=== PATIENT | female | born 1985 | race Hispanic/Latino ===

== ENCOUNTER 2021-10-03 01:06 | Inpatient (IN) | payer MEDICAID, OTHER ==
[~2021-10-03] VITALS: Ht 157.5 cm; Wt 108.9 kg
[2021-10-03] VITALS (7 sets, daily range): BP systolic 136–175; BP diastolic 75–117
[2021-10-03] MEDS ORDERED: NS 1000ML 1,000 ML IV STA (02:45)
[2021-10-03] MEDS ORDERED: ZOFRAN IV STA (02:45)
--- NOTE | 2021-10-03 02:49 | ER.PDOC ---
General Chief Complaint: Requesting Medical Care Stated Complaint: ABD PAIN,VOMITING Time seen by MD: 02:48 Source: patient Exam Limitations: no limitations History of Present Illness Initial Comments Lower abdominal pain and vomiting. Timing/Duration: 24 hours Severity/Quality: moderate, sharpness Radiation: no radiation Associated Symptoms: nausea/vomiting Exacerbated by: nothing Relieved By: nothing Vital Signs First Vital Signs Date Time Temp Pulse Resp B/P (MAP) Pulse Ox O2 Delivery O2 Flow Rate FiO2 10/03/21 03:14 97.8 101 16 97 Last Vital Signs Date Time Temp Pulse Resp B/P (MAP) Pulse Ox O2 Delivery O2 Flow Rate FiO2 10/03/21 03:14 97.8 101 16 97 Past Medical History Medical History: other (SLE, Seizures) Surgical History: hysterectomy Family History Significant Family History: no pertinent family hx Social History Smoking: non-smoker Alcohol Use: none Drug Use: none Constitutional: no symptoms reported EENTM: no symptoms reported Respiratory: no symptoms reported Cardiovascular: no symptoms reported Gastrointestinal: see HPI All Other Systems: Reviewed and Negative Physical Exam General Appearance: No Apparent Distress, WD/WN, Obese Neck: Non-Tender, Full Range of Motion, Supple, Normal Inspection Respiratory: chest non-tender, lungs clear, normal breath sounds, no respiratory distress, no accessory muscle use Cardiovascular: Normal Peripheral Pulses, Regular Rate, Rhythm, No Edema, No Gallop, No JVD, No Murmur Gastrointestinal: Normal Bowel Sounds, No Organomegaly, No Pulsatile Mass, Tenderness (lower abdomen), Hernia (umbilical) Back: Normal Inspection, No CVA Tenderness, No Vertebral Tenderness Extremities: Normal Range of Motion, Non-Tender, Normal Inspection, No Pedal Edema, No Calf Tenderness, Normal Capillary Refill, Pelvis Stable 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 (10/03/21 02:45) Urinalysis (10/03/21 02:45) Comprehensive Metabolic Panel (10/03/21 02:45) 0.9 % Sodium Chloride (Ns 1000ml) (10/03/21 02:45) Ondansetron Hcl/Pf (Zofran) (10/03/21 02:45) 0.9 % Sodium Chloride (Ns 1000ml) (10/03/21 03:06) Ondansetron Hcl/Pf (Zofran) (10/03/21 03:06) Urine Culture (10/03/21 03:32) Ct Abd/Pelvis Wo Iv Contrast (10/03/21 02:45) Vital Signs Date Time Temp Pulse Resp B/P (MAP) Pulse Ox O2 Delivery O2 Flow Rate FiO2 10/03/21 03:14 97.8 101 16 97 10/03/21 03:14 97.8 101 16 97 Administered Medications Medications (Trade) Dose Ordered Sig/Maude Route PRN Reason Start Time Stop Time Status Last Admin Dose Admin Ondansetron HCl (Zofran) 4 mg STAT STAT IV 10/03/21 02:45 10/03/21 02:48 DC 10/03/21 03:12 4 MG Sodium Chloride 1,000 ml @ 1,000 mls/hr Q1H STAT IV 10/03/21 02:45 10/03/21 03:44 DC 10/03/21 03:12 1,000 MLS/HR Laboratory Tests Test 10/03/21 03:32 10/03/21 05:25 Urine Collection Type RANDOM Urine Color YELLOW Urine Appearance TURBID Urine Bilirubin NEGATIVE (NEGATIVE) Urine Ketones NEGATIVE (NEGATIVE) Urine Specific [place] >=1.030 (1.005-1.030) Urine pH 5.5 (4.5-8.0) Urine Protein 1+ (NEGATIVE) H Urine Urobilinogen 1.0 E.U./dL (0.2) Urine Nitrate NEGATIVE (NEGATIVE) Urine Leukocyte Esterase 1+ (NEGATIVE) H Urine Glucose (Auto)(UA) NEGATIVE (NEGATIVE) Urine Blood 2+ (NEGATIVE) H Urine RBC 0-2 RBC/HPF (NONE SEEN) Urine WBC TooNumerousToCount WBC/HPF (0-2) Urine Squamous Epithelial Cells MANY (<=FEW) Urine Bacteria MANY (NONE SEEN) H Urine Trichomonas MODERATE (NONE SEEN) A White Blood Count 7.6 10^3/uL (4.5-11.0) Red Blood Count 4.45 10^6/uL (4.00-5.20) Hemoglobin 11.1 g/dL (12.0-15.0) L Hematocrit 35.5 % (36.0-46.0) L Mean Corpuscular Volume 79.8 fL (78-100) Mean Corpuscular Hemoglobin 24.9 pg (26-34) L Mean Corpuscular Hemoglobin Concent 31.3 g/dL (33-36.5) L Red Cell Distribution Width 13.6 % (11.5-14.5) Platelet Count 413 10^3/uL (150-400) H Mean Platelet Volume 9.8 fL (7.8-11.0) Neutrophils (%) (Auto) 61.3 % (41.0-85.0) Lymphocytes (%) (Auto) 30.7 % (24.0-44.0) Monocytes (%) (Auto) 5.7 % (5.0-12.0) Neutrophils # (Auto) 4.6 10^3/uL (1.8-7.7) Lymphocytes # (Auto) 2.32 10^3/uL1 (1.0-4.8) Monocytes # (Auto) 0.4 10^3/uL (0.3-0.8) Absolute Immature Granulocyte (auto 0.02 10^3 u/L (0-2) Absolute Eosinophils (auto) 0.1 10^3/uL (0.0-0.2) Immature Granulocytes % 0.30 % (0.00-0.50) Eosinophils % 1.6 % (0.0-5.0) Basophils % 0.4 % (0.0-0.2) H Basophils # 0.0 10^3/uL (0.0-0.1) Prothrombin Time 10.4 SEC (9.6-12.0) Prothrombin Time INR (Non-Therap) 1.0 Activated Partial Thromboplast Time 22.4 SEC (24.67-30.72) Sodium Level 138 mmol/L (132-145) Potassium Level 3.6 mmol/L (3.6-5.2) Chloride Level 103.0 mmol/L (96-109) Carbon Dioxide Level 26.3 mmol/L (20.0-32) Anion Gap 12.3 Blood Urea Nitrogen 12 mg/dL (7-18) Creatinine 0.56 mg/dL (0.59-1.40) L Estimated GFR () 146.6 (>/=60) Est GFR (CKD-EPI)(Non-Afr [place]) 121.2 (>/=60) BUN/Creatinine Ratio 21.0 Glucose Level 111 mg/dL (70-110) H Calcium Level 8.8 mg/dL (8.4-10.5) Total Bilirubin 0.5 mg/dL (0.2-1.0) Aspartate Amino Transferase (AST) 21 U/L (0-35) Alanine Aminotransferase (ALT) 16 U/L (12-78) Alkaline Phosphatase 114 U/L (50-136) Total Protein 7.7 g/dL (6.4-8.2) Albumin 3.5 g/dL (3.4-5.0) Globulin 4.2 Albumin/Globulin Ratio 0.833 Lipase 94 U/L (114-286) L Progress Progress CT abdomen/pelvis: Fat containing periumbilical hernia with hernia neck measuring 9 mm. Associated inflammatory changes of the adjacent mesenteric fat. Spoke to Dr. Kyle about the incarcerated umbilical hernia and he told me to admit patient under the hospitalist and he will see her later today. ER DEPART Departure Time of Disposition: 06:14 Disposition: 09 ADMITTED INPATIENT Impression: Primary Impression: Incarcerated umbilical hernia Additional Impression: UTI (urinary tract infection) Condition: Stable Referrals: PCP,UNKNOWN (PCP) PRIMARY CARE PROVIDER Comments Admitted to Dr. Ceron Duration or Time Spent with Pa: 60 min Problem Qualifiers Additional Impression: UTI (urinary tract infection) Urinary tract infection type: site unspecified Hematuria presence: with hematuria Qualified Codes: N39.0 - Urinary tract infection, site not specified; R31.9 - Hematuria, unspecified MARCELA RODRÍGUEZ MD Oct 03, 2021 02:49
[2021-10-03] MEDS ORDERED: NS 1000ML 1,000 ML ONE (03:06)
[2021-10-03] MEDS ORDERED: ZOFRAN ONE (03:06)
[2021-10-03 03:38] LABS: BILIRUBIN,URINE NEGATIVE (NEGATIVE)
--- NOTE | 2021-10-03 05:02 | DIREP ---
PROCEDURE:CT ABDOMEN/PELVIS W/O CONTRAST COMPARISON:None. INDICATIONS:Lower abdominal pain TECHNIQUE:Axial images were created through the abdomen and pelvis without intravenous contrast material. No oral contrast was administered. The lack of oral contrast limits assessment of the bowel Sagittal and coronal reconstructions were performed from source images. FINDINGS: LUNG BASES:Normal. No visible pulmonary or pleural disease. LIVER:Normal. No significant liver lesions are identified. BILIARY:The gallbladder is surgically absent. PANCREAS:Normal. No lesion, fluid collection, ductal dilatation, or atrophy. SPLEEN:Normal. No enlargement or focal lesion. ADRENALS:Normal. No mass or enlargement. URINARY TRACT:Normal. No focal lesions or hydronephrosis. AORTA/VASCULAR:Normal. No aneurysm. RETROPERITONEUM:Normal. No mass or adenopathy. BOWEL/MESENTERY:Normal. There is no intestinal obstruction, free fluid, free air or mesenteric inflammatory changes. ABDOMINAL WALL:Fat containing periumbilical hernia. Mild inflammatory changes in the subcutaneous fat. PELVIC ORGANS:Normal. No visible mass. Pelvic organs appropriate for patient age. BONES:Normal for age. No bony lesion or acute fracture. OTHER:Negative. CONCLUSION:Fat containing periumbilical hernia with hernia neck measuring 9 mm. Associated inflammatory changes of the adjacent mesenteric fat. Dictated by: Brad Berry DO on 10/03/2021 at 04:56 AM
[2021-10-03 05:31] LABS: BASOPHIL % 0.4 % (0.0-0.2); EOSINOPHIL # 0.1 10^3/uL (0.0-0.2); EOSINOPHIL % 1.6 % (0.0-5.0); LYMPHOCYTES # 2.32 10^3/uL1 (1.0-4.8); LYMPHOCYTES % 30.7 % (24.0-44.0); MEAN CORP HGB 24.9 pg (26-34); MONOCYTES # 0.4 10^3/uL (0.3-0.8); MONOCYTES % 5.7 % (5.0-12.0); NEUTROPHIL # 4.6 10^3/uL (1.8-7.7); NEUTROPHILS % 61.3 % (41.0-85.0); PLATELET COUNT 413 10^3/uL (150-400); RED CELL DISTRIBUTION WIDTH 13.6 % (11.5-14.5)
[2021-10-03 05:47] LABS: CARBON DIOXIDE 26.3 mmol/L (20.0-32)
[2021-10-03] MEDS ORDERED: ROCEPHIN 1,000 MG in NS 100ML 100 ML IV STA (06:17)
[2021-10-03] MEDS ORDERED: MORPHINE SULFATE IV STA (06:17)
[2021-10-03] MEDS ORDERED: NS 100ML 100 ML IV ONE (06:38)
[2021-10-03] MEDS ORDERED: ROCEPHIN ONE (06:38)
[2021-10-03] MEDS ORDERED: MORPHINE SULFATE ONE (06:39)
[2021-10-03] MEDS ORDERED: BENADRYL IV STA (07:01)
[2021-10-03] MEDS ORDERED: BENADRYL ONE (07:02)
--- NOTE | 2021-10-03 07:15 | NUR ---
REPORT REPORT CALLED TO Jarrett DUARTE RN
--- NOTE | 2021-10-03 07:25 | NUR ---
MS PT TO 338 VIA W/C IN STABLE CONDITION.
--- NOTE | 2021-10-03 07:47 | NUR ---
ARRIVAL PATIENT ARRIVED TO MED-SURG UNIT AT THIS TIME TO ROOM #338. RECEIVED REPORT, ASSUMED CARE FOR PATIENT AT THIS TIME.
[2021-10-03] MEDS: ROCEPHIN 1,000 MG in NS 100ML 100 ML IV SCH (09:30)
[2021-10-03] MEDS ORDERED: D5W-1/2NS 1000ML 1,000 ML IV ONE ×2 (09:30→14:30)
[2021-10-03] MEDS: DILAUDID IV PRN ×3 (10:45→19:18)
--- NOTE | 2021-10-03 13:43 | PCM.HP ---
History of Present Illness Reason for Visit: Abdominal pain History of Present Illness 36-year-old female with history of seizure disorder, anxiety, lupus, DVTPresented to the emergency room with abdominal pain and nausea for the last week. Symptoms got worse last 24 hours. Work-up in the emergency room patient was found to haveUTI. CT abdomen pelvis showed :Fat containing periumbilical hernia with hernia neck measuring 9 mm. Associated inflammatory changes of the adjacent mesenteric fat. Surgeon was consulted by ED physician. Patient is being admitted hospital for further management. 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 Heme/Onc: Other (DVT) Psychiatric: Anxiety Past Surgical History: Cholecystectomy, Other (Hysterectomy) Past Social History Smoke: No Review of Systems Gastrointestinal: Nausea, Abdominal Pain Genitourinary: Dysuria Allergies: Coded Allergies: Iodinated Contrast Media (Verified Allergy, Severe, Anaphylaxis Shock, 10/03/21) "MY THROAT CLOSED" ketorolac (Verified Allergy, Severe, Shortness of Breath, 10/03/21) HIVES metoclopramide (Verified Allergy, Severe, Shortness of Breath, 10/03/21) HIVES morphine (Verified Allergy, Unknown, Redness of skin, 10/03/21) Exam Vital Signs Vital Signs Date Time Temp Pulse Resp B/P (MAP) Pulse Ox O2 Delivery O2 Flow Rate FiO2 10/03/21 08:14 97.9 90 18 160/102 (121) 96 Room Air General Appearance: Alert, Oriented X3 HEENT: Atraumatic, PERRLA Respiratory: Clear to auscultation, Normal air movement Cardiovascular: Regular rate, Normal S1, Normal S2 Abdominal: Normal bowel sounds, Soft, Other (Periumbilical hernia) Extremities: No clubbing, No cyanosis Skin: No rash Neuro: Normal speech, Normal tone Psych/Mental Status: Mental status NL, Mood NL Assessment/Plan Assessment/Plan Assessment/Plan 36-year-old female with history of morbid obesity, seizure disorder, anxiety, presented with abdominal pain and nausea CT abdomen pelvis: Fat containing periumbilical hernia with hernia neck measuring 9 mm. Associated inflammatory changes of the adjacent mesenteric fat. Also patient was found to have UTI. Plan Admit Surgeon consulted for evaluation and management. Keep n.p.o. IV fluids IV antibiotic Pain management with close monitoring of vital signs and pulse ox Will review and reconcile home meds GI prophylaxis famotidine DVT prophylaxis as appropriate Expect length of stay more than 1 midnight Problems: (1) UTI (urinary tract infection) Status: Acute ICD Code: N39.0 - Urinary tract infection, site not specified SNOMED: 67692708 (2) Incarcerated umbilical hernia Status: Acute ICD Code: K42.0 - Umbilical hernia with obstruction, without gangrene SNOMED: 654898429 (3) Morbid obesity ICD Code: E66.01 - Morbid (severe) obesity due to excess calories SNOMED: 911776379 (4) Seizure disorder ICD Code: G40.909 - Epilepsy, unspecified, not intractable, without status epilepticus SNOMED: 722271157 Problem Qualifiers (1) UTI (urinary tract infection): Urinary tract infection type: site unspecified Hematuria presence: with hematuria Qualified Codes: N39.0 - Urinary tract infection, site not specified; R31.9 - Hematuria, unspecified JADE BHATT MD Oct 03, 2021 13:43
--- NOTE | 2021-10-03 13:55 | PRM.CONS ---
CONSULTATION CONSULTATION Chief complaint Incarcerated incisional hernia History of present illness 36-year-old female traveling up to this area via bus began having abdominal pain nausea about 24 hours ago. Patient still having bowel movements. No vomiting. Pain is described as sharp around the periumbilical area. Patient has had multiple surgeries in this area including and hysterectomy at the same time. Along with lap appendectomy and gallbladder surgery. Past medical history Seizure disorder, lupus, anxiety, DVT Past surgical history and hysterectomy, appendectomy, Sandra Allergies Contrast, Toradol, Reglan, morphine Meds See current med list Social history Denies tobacco alcohol or drug use Family history None Review of systems General: Denies fever, chills, significant weight change HEENT: Denies blurry vision, double vision, hearing loss, neck pain CVS: Denies heart attack, stroke, high blood pressure Lungs: Denies shortness of breath or productive cough Abdomen: Positive abdominal pain, nausea denies vomiting, constipation, diarrhea Extremities: Denies unusual change in sensation or unusual weakness Psych: Positive for anxiety, denies depression Physical exam Vitals See vitals in chart Labs See labs in chart Radiology Reviewed CT scan abdomen pelvis General: Alert and oriented x3 no acute distress HEENT: Pupils 6 mm reactive, extraocular muscles intact, neck supple, hearing intact CVS: Regular rate and rhythm Lungs: Clear to auscultation bilaterally Abdomen: Minimal tenderness around the umbilicus, no erythema, distant bowel sounds, nondistended Extremities: 2+ distal pulses Psych: Calm and lucid Assessment and plan 36-year-old female with incisional hernia with incarcerated fat and UTI 1. Patient will need to get UTI treated prior to surgical intervention requiring mesh 2. Would recommend laparoscopic procedure with mesh placement, but patient cannot have any active ongoing infections at the time of procedure 3. Currently recommend pain management and UTI treatment and follow-up in the office for outpatient procedure HAI MASON MD Oct 03, 2021 13:55
[2021-10-03] MEDS ORDERED: KEPPRA IV SCH (14:00)
[2021-10-03] MEDS: KEPPRA 100 ML IV SCH ×2 (14:00→14:23)
[2021-10-03] MEDS ORDERED: ATIVAN IV PRN (14:00)
--- NOTE | 2021-10-03 14:19 | NUR ---
REPORT REPORT GIVEN TO CHERYL LEDESMA. RELINQUISHED CARE FOR PATIENT AT THIS TIME.
--- NOTE | 2021-10-03 14:25 | NUR ---
MARLON RECEIVED ORDERS FROM DR. MASON TO PLACE PT ON A DIET, AND THAT SHE CAN EAT. HE STATED THAT HE IS NOT GOING TO DO ANY SURGICAL PROCEDURE AT THE MOMENT BECAUSE THE PT HAS A UTI. THIS NURSE TO NOTIFY PT'S NURSE OF CHANGES.
[2021-10-03] MEDS: ZOFRAN IV PRN ×2 (15:05→19:18)
--- NOTE | 2021-10-03 15:05 | NUR ---
STATUS PT HAD COMPLAINS OF NAUSEA AFTER RECEIVING DILAUDID, THIS NURSE TO ADMINISTER 4MG OF ZOFRAN VIA IV.
--- NOTE | 2021-10-03 15:30 | NUR ---
STATUS PT STARTED VOMITING COPIOUS AMOUNTS OF WHAT APPEARED TO BE THE SANDWICH SHE ATE EARLIER, AND SOME GREEN BILE. PT'S BLOOD PRESSURE WAS REPORTED TO BE 175/117 BY HARSH AGUILLON. THIS NURSE CALLED DR. HANSEN AND RECEIVED AN ORDER FOR PHENERGAN 12.5MG IV OT, AND TO MAKE THE PT NPO AGAIN. DR. HANSEN REQUESTED THAT WE ADMINISTER THE PHENERGAN, AND TO WAIT ABOUT AN HOUR AND IF HER BP IS STILL THAT HIGH, TO ADMINISTER A OT DOSE OF LABETALOL 10MG VIA IV. THIS NURSE TO NOTIFY PT'S NURSE OF NEW ORDERS.
[2021-10-03] MEDS ORDERED: PHENERGAN ONE (15:41)
[2021-10-03] MEDS ORDERED: NS 25ML 25 ML IV ONE (15:41)
[2021-10-03] MEDS ORDERED: PHENERGAN IV ONE (16:00)
[2021-10-03] MEDS ORDERED: LEVETIRACETAM PO ONE (20:18)
[2021-10-03] MEDS: PEPCID IV SCH (20:23)
[2021-10-03] MEDS: KEPPRA PO SCH (20:23)
[2021-10-03] MEDS ORDERED: FLAGYL 500MG/ 100 ML NS 100 ML IV ONE (21:09)
[2021-10-03] MEDS: FLAGYL 500MG/ 100 ML NS 100 ML IV SCH (21:15)
[2021-10-04] MEDS: DILAUDID IV PRN ×5 (03:50→23:17)
[2021-10-04 04:10] VITALS: BP 146/96
[2021-10-04] MEDS: ZOFRAN IV PRN ×2 (04:11→08:43)
[2021-10-04] MEDS ORDERED: FLAGYL 500MG/ 100 ML NS 100 ML IV ONE (04:47)
[2021-10-04] MEDS: FLAGYL 500MG/ 100 ML NS 100 ML IV SCH (05:07)
[2021-10-04 06:56] LABS: BASOPHIL % 0.4 % (0.0-0.2); EOSINOPHIL # 0.1 10^3/uL (0.0-0.2); EOSINOPHIL % 1.9 % (0.0-5.0); LYMPHOCYTES # 0.95 10^3/uL1 (1.0-4.8); LYMPHOCYTES % 17.9 % (24.0-44.0); MEAN CORP HGB 25.2 pg (26-34); MONOCYTES # 0.4 10^3/uL (0.3-0.8); NEUTROPHIL # 3.9 10^3/uL (1.8-7.7); NEUTROPHILS % 72.8 % (41.0-85.0); PLATELET COUNT 310 10^3/uL (150-400); RED CELL DISTRIBUTION WIDTH 13.6 % (11.5-14.5)
[2021-10-04 07:12] LABS: CARBON DIOXIDE 24.7 mmol/L (20.0-32)
[2021-10-04] MEDS: PEPCID IV SCH ×2 (08:24→21:59)
[2021-10-04] MEDS: KEPPRA PO SCH ×3 (08:24→22:00)
[2021-10-04] MEDS: ROCEPHIN 1,000 MG in NS 100ML 100 ML IV SCH (08:24)
[2021-10-04] MEDS ORDERED: NS 250ML 250 ML ONE ×2 (08:35→16:19)
[2021-10-04 08:39] VITALS: BP 133/81
--- NOTE | 2021-10-04 09:51 | PRM.PN ---
Subjective Subjective Date: Oct 04, 2021 Time: 09:45 Subjective Ms. Mari c/o abdominal pain and nausea VTE VTE Risk Total Score: 1 VTE Risk Score VTE Risk: Score 0-1 = Low Risk (Aggressive mobilization; early ambulation; no VTE prophylaxis required) Score 2: Moderate Risk (Intermittent/Pneumatic Compression Device OR Lovenox/Heparin/Coumadin) Score 3-4: High Risk (Intermittent/Pneumatic Compression Device AND Lovenox/Heparin/Coumadin) Score > or =5: Highest Risk (Intermittent/Pneumatic Compression Device AND Lovenox/Heparin/Coumadin) Review of Systems Constitutional: Malaise; No: Fever, Chills, Sweats Gastrointestinal: Nausea, Vomiting, Abdominal Pain Genitourinary: Dysuria Allergies: Coded Allergies: Iodinated Contrast Media (Verified Allergy, Severe, Anaphylaxis Shock, 10/03/21) "MY THROAT CLOSED" ketorolac (Verified Allergy, Severe, Shortness of Breath, 10/03/21) HIVES metoclopramide (Verified Allergy, Severe, Shortness of Breath, 10/03/21) HIVES morphine (Verified Allergy, Unknown, Redness of skin, 10/03/21) Objective Vitals and I/O Vital Sign - Last 24 Hours 10/04/21 10/04/21 08:39 09:17 Temp 98.1 Pulse 99 Resp 17 B/P (MAP) 133/81 (98) Pulse Ox 96 O2 Delivery Room Air General: Alert, Oriented X3 HEENT: Atraumatic, PERRLA Lungs: Clear to auscultation, Normal air movement Heart: Regular rate, Normal S1, Normal S2 Abdomen: Normal bowel sounds, Soft, Other (diffuse TTP) Extremities: No clubbing, No cyanosis Neuro: Normal speech, Normal tone Psych/Mental Status: Mental status NL, Mood NL All Results(Lab/Rad) Laboratory Tests Test 10/04/21 06:40 White Blood Count 5.3 10^3/uL Red Blood Count 4.29 10^6/uL Hemoglobin 10.8 g/dL Hematocrit 34.8 % Mean Corpuscular Volume 81.1 fL Mean Corpuscular Hemoglobin 25.2 pg Mean Corpuscular Hemoglobin Concent 31.0 g/dL Red Cell Distribution Width 13.6 % Platelet Count 310 10^3/uL Mean Platelet Volume 9.6 fL Neutrophils (%) (Auto) 72.8 % Lymphocytes (%) (Auto) 17.9 % Monocytes (%) (Auto) 7.0 % Neutrophils # (Auto) 3.9 10^3/uL Lymphocytes # (Auto) 0.95 10^3/uL1 Monocytes # (Auto) 0.4 10^3/uL Absolute Immature Granulocyte (auto 0.01 10^3 u/L Absolute Eosinophils (auto) 0.1 10^3/uL Immature Granulocytes % 0.20 % Eosinophils % 1.9 % Basophils % 0.4 % Basophils # 0.0 10^3/uL Sodium Level 138 mmol/L Potassium Level 3.1 mmol/L Chloride Level 101.0 mmol/L Carbon Dioxide Level 24.7 mmol/L Glucose Level 108 mg/dL Blood Urea Nitrogen 5 mg/dL Creatinine 0.48 mg/dL Calcium Level 8.1 mg/dL Anion Gap 15.4 Estimated GFR () 175.1 Est GFR (CKD-EPI)(Non-Afr Ghanaian) 144.7 BUN/Creatinine Ratio 10.0 Current Medications Medications (Trade) Dose Ordered Sig/Maude Route PRN Reason Start Time Stop Time Status Last Admin Dose Admin Sodium Chloride 1,000 ml @ 1,000 mls/hr Q1H STAT IV 10/03/21 02:45 10/03/21 03:44 DC 10/03/21 03:12 Ondansetron HCl (Zofran) 4 mg STAT STAT IV 10/03/21 02:45 10/03/21 02:48 DC 10/03/21 03:12 Sodium Chloride 1,000 ml @ ud STK-MED ONCE .ROUTE 10/03/21 03:06 10/03/21 03:06 DC Ondansetron HCl (Zofran) 4 mg STK-MED ONCE .ROUTE 10/03/21 03:06 10/03/21 03:07 DC Ceftriaxone Sodium 1000 mg/ Sodium Chloride 100 ml @ 100 mls/hr STAT STAT IV 10/03/21 06:17 10/03/21 07:16 DC 10/03/21 06:50 Morphine Sulfate (Morphine Sulfate) 4 mg STAT STAT IV 10/03/21 06:17 10/03/21 06:21 DC 10/03/21 06:50 Sodium Chloride 100 ml @ ud STK-MED ONCE IV 10/03/21 06:38 10/03/21 06:38 DC Ceftriaxone Sodium (Rocephin) 1,000 mg STK-MED ONCE .ROUTE 10/03/21 06:38 10/03/21 06:39 DC Morphine Sulfate (Morphine Sulfate) 4 mg STK-MED ONCE .ROUTE 10/03/21 06:39 10/03/21 06:39 DC Diphenhydramine HCl (Benadryl) 25 mg STAT STAT IV 10/03/21 07:01 10/03/21 07:02 DC 10/03/21 07:06 Diphenhydramine HCl (Benadryl) 50 mg STK-MED ONCE .ROUTE 10/03/21 07:02 10/03/21 07:02 DC Ondansetron HCl (Zofran) 4 mg Q4H PRN IV NAUSEA / VOMITING 10/03/21 09:30 10/04/21 09:44 DC 10/04/21 08:43 Famotidine (Pepcid) 20 mg BID IV 10/03/21 21:00 11/02/21 20:59 10/04/21 08:24 Ceftriaxone Sodium 1000 mg/ Sodium Chloride 100 ml @ 100 mls/hr Q24HRS IV 10/03/21 09:30 11/02/21 09:29 10/04/21 08:24 Hydromorphone HCl (Dilaudid) 0.5 mg Q4H PRN IV PAIN 7 - 10 10/03/21 10:00 11/02/21 09:59 10/04/21 08:44 Levetiracetam (Keppra) 500 mg Q8 IV 10/03/21 14:00 10/03/21 14:14 DC Lorazepam (Ativan) 1 mg PRN PRN IV seizure 10/03/21 14:00 11/02/21 13:59 Promethazine HCl (Phenergan) 25 mg STK-MED ONCE .ROUTE 10/03/21 15:41 10/03/21 15:41 DC Sodium Chloride 25 ml @ ud STK-MED ONCE IV 10/03/21 15:41 10/03/21 15:42 DC Promethazine HCl (Phenergan) 12.5 mg OT ONCE IV 10/03/21 16:00 10/03/21 20:47 DC 10/03/21 15:47 Levetiracetam (Keppra) 500 mg BID PO 10/03/21 21:00 11/02/21 20:59 10/04/21 08:24 Metronidazole 100 ml @ 100 mls/hr Q8HR IV 10/03/21 22:00 11/02/21 21:59 10/04/21 05:07 Levetiracetam (Levetiracetam) 250 mg STK-MED ONCE PO 10/03/21 20:18 10/03/21 20:18 DC Metronidazole 100 ml @ ud STK-MED ONCE IV 10/03/21 21:09 10/03/21 21:09 DC Metronidazole 100 ml @ ud STK-MED ONCE IV 10/04/21 04:47 10/04/21 04:47 DC Sodium Chloride 250 ml @ ud STK-MED ONCE .ROUTE 10/04/21 08:35 10/04/21 08:35 DC Ondansetron HCl (Zofran) 8 mg Q6H IV 10/04/21 10:00 11/02/21 09:29 UNV Enoxaparin Sodium (Lovenox) 30 mg Q12H SQ 10/04/21 10:00 11/03/21 09:59 UNV Course Sepsis Screening Results: Posi: NEGATIVE Sepsis Qualifier/Stage: NO DEFINITE RISK Duration or Total Time Spent w: 60 min Vitals & review Data Vital Sign - Last 24 Hours 10/04/21 10/04/21 08:39 09:17 Temp 98.1 Pulse 99 Resp 17 B/P (MAP) 133/81 (98) Pulse Ox 96 O2 Delivery Room Air Laboratory Tests Test 10/03/21 03:32 10/03/21 05:25 10/03/21 06:14 10/04/21 06:40 Urine Collection Type RANDOM Urine Color YELLOW Urine Appearance TURBID Urine Bilirubin NEGATIVE Urine Ketones NEGATIVE Urine Specific [place] >=1.030 Urine pH 5.5 Urine Protein 1+ Urine Urobilinogen 1.0 E.U./dL Urine Nitrate NEGATIVE Urine Leukocyte Esterase 1+ Urine Glucose (Auto)(UA) NEGATIVE Urine Blood 2+ Urine RBC 0-2 RBC/HPF Urine WBC TooNumerousToCount WBC/HPF Urine Squamous Epithelial Cells MANY Urine Bacteria MANY Urine Trichomonas MODERATE White Blood Count 7.6 10^3/uL 5.3 10^3/uL Red Blood Count 4.45 10^6/uL 4.29 10^6/uL Hemoglobin 11.1 g/dL 10.8 g/dL Hematocrit 35.5 % 34.8 % Mean Corpuscular Volume 79.8 fL 81.1 fL Mean Corpuscular Hemoglobin 24.9 pg 25.2 pg Mean Corpuscular Hemoglobin Concent 31.3 g/dL 31.0 g/dL Red Cell Distribution Width 13.6 % 13.6 % Platelet Count 413 10^3/uL 310 10^3/uL Mean Platelet Volume 9.8 fL 9.6 fL Neutrophils (%) (Auto) 61.3 % 72.8 % Lymphocytes (%) (Auto) 30.7 % 17.9 % Monocytes (%) (Auto) 5.7 % 7.0 % Neutrophils # (Auto) 4.6 10^3/uL 3.9 10^3/uL Lymphocytes # (Auto) 2.32 10^3/uL1 0.95 10^3/uL1 Monocytes # (Auto) 0.4 10^3/uL 0.4 10^3/uL Absolute Immature Granulocyte (auto 0.02 10^3 u/L 0.01 10^3 u/L Absolute Eosinophils (auto) 0.1 10^3/uL 0.1 10^3/uL Immature Granulocytes % 0.30 % 0.20 % Eosinophils % 1.6 % 1.9 % Basophils % 0.4 % 0.4 % Basophils # 0.0 10^3/uL 0.0 10^3/uL Prothrombin Time 10.4 SEC Prothrombin Time INR (Non-Therap) 1.0 Activated Partial Thromboplast Time 22.4 SEC Sodium Level 138 mmol/L 138 mmol/L Potassium Level 3.6 mmol/L 3.1 mmol/L Chloride Level 103.0 mmol/L 101.0 mmol/L Carbon Dioxide Level 26.3 mmol/L 24.7 mmol/L Anion Gap 12.3 15.4 Blood Urea Nitrogen 12 mg/dL 5 mg/dL Creatinine 0.56 mg/dL 0.48 mg/dL Estimated GFR () 146.6 175.1 Est GFR (CKD-EPI)(Non-Afr Ghanaian) 121.2 144.7 BUN/Creatinine Ratio 21.0 10.0 Glucose Level 111 mg/dL 108 mg/dL Calcium Level 8.8 mg/dL 8.1 mg/dL Total Bilirubin 0.5 mg/dL Aspartate Amino Transf (AST/SGOT) 21 U/L Alanine Aminotransferase (ALT/SGPT) 16 U/L Alkaline Phosphatase 114 U/L Total Protein 7.7 g/dL Albumin 3.5 g/dL Globulin 4.2 Albumin/Globulin Ratio 0.833 Lipase 94 U/L SARS-CoV-2 Antigen (Rapid) NEGATIVE Current Medications Medications (Trade) Dose Ordered Sig/Maude PRN Reason Start Time Stop Time Status Last Admin Ceftriaxone Sodium 1000 mg/ Sodium Chloride 100 ml @ 100 mls/hr Q24HRS 10/03/21 09:30 11/02/21 09:29 10/04/21 08:24 Enoxaparin Sodium (Lovenox) 30 mg Q12H 10/04/21 10:00 11/03/21 09:59 UNV Famotidine (Pepcid) 20 mg BID 10/03/21 21:00 11/02/21 20:59 10/04/21 08:24 Hydromorphone HCl (Dilaudid) 0.5 mg Q4H PRN PAIN 7 - 10 10/03/21 10:00 11/02/21 09:59 10/04/21 08:44 Levetiracetam (Keppra) 500 mg BID 10/03/21 21:00 11/02/21 20:59 10/04/21 08:24 Lorazepam (Ativan) 1 mg PRN PRN seizure 10/03/21 14:00 11/02/21 13:59 Metronidazole 100 ml @ 100 mls/hr Q8HR 10/03/21 22:00 11/02/21 21:59 10/04/21 05:07 Ondansetron HCl (Zofran) 8 mg Q6H 10/04/21 10:00 11/02/21 09:29 UNV LEVEL 1 SEPSIS INFECTION CRITE: ABX Therapy, Abdominal Pain LEVEL 2-SIRS (LIST ALL THAT AP: None/Not assessed Cardiovascular Evidence: Not Assessed or None Hematologic Evidence: None/Not assessed Hepatic Evidence: None/Not assessed Metabolic Evidence: None/Not assessed Neurological Evidence: None/Not assessed Respiratory Evidence: None/Not assessed Renal Evidence: None/Not assessed O2 Sat by Pulse Oximetry: 96 Assessment/Plan Assessment/Plan Problems: (1) Incarcerated umbilical hernia Status: Acute Assessment & Plan: Status post surgery eval, treating UTI in preparation for surgical repair ICD Code: K42.0 - Umbilical hernia with obstruction, without gangrene SNOMED: 877862810 (2) UTI (urinary tract infection) Status: Acute Assessment & Plan: started on ceftriaxone based upon UA ICD Code: N39.0 - Urinary tract infection, site not specified SNOMED: 77777768 (3) Morbid obesity Status: Chronic Assessment & Plan: will vocational rehabilitation counselor on weight loss once she is acutely improved ICD Code: E66.01 - Morbid (severe) obesity due to excess calories SNOMED: 626550138 (4) Seizure disorder Status: Chronic Assessment & Plan: resumed home keppra ICD Code: G40.909 - Epilepsy, unspecified, not intractable, without status epilepticus SNOMED: 326734585 Problem Qualifiers (1) UTI (urinary tract infection): Urinary tract infection type: site unspecified Hematuria presence: with hematuria Qualified Codes: N39.0 - Urinary tract infection, site not specified; R31.9 - Hematuria, unspecified KYLEE NEVAREZ MD Oct 04, 2021 09:51
[2021-10-04] MEDS: ZOFRAN IV SCH ×3 (10:00→21:59)
[2021-10-04] MEDS ORDERED: ZOFRAN IV ONE (10:30)
[2021-10-04] MEDS: LOVENOX SQ SCH ×2 (10:52→22:01)
[2021-10-04 12:24] VITALS: BP 135/79
[2021-10-04] MEDS: FLAGYL PO SCH ×3 (14:48→22:00)
[2021-10-04 16:13] VITALS: BP 135/85
[2021-10-04] MEDS ORDERED: NS 25ML 25 ML IV ONE ×2 (16:16→21:22)
[2021-10-04] MEDS: PHENERGAN IV PRN ×2 (16:35→21:59)
--- NOTE | 2021-10-04 17:46 | PRM.PN ---
Progress Note Subjective Physician Notes: Pain better, still having issues with n/v Objective Review IO, Exams,& Results Problems Acute/Active Problems: (1) Incarcerated umbilical hernia (2) UTI (urinary tract infection) Vital Signs Date Time Temp Pulse Resp B/P (MAP) Pulse Ox O2 Delivery O2 Flow Rate FiO2 10/04/21 16:13 98.8 114 17 135/85 (102) 96 10/04/21 09:17 Room Air Intake and Output 10/04/21 07:00 Intake Total 1200 ml Balance 1200 ml IV Total 1200 ml Laboratory Tests Test 10/03/21 03:32 10/03/21 05:25 10/03/21 06:14 10/04/21 06:40 Urine Collection Type RANDOM Urine Color YELLOW Urine Appearance TURBID Urine Bilirubin NEGATIVE Urine Ketones NEGATIVE Urine Specific [place] >=1.030 Urine pH 5.5 Urine Protein 1+ Urine Urobilinogen 1.0 E.U./dL Urine Nitrate NEGATIVE Urine Leukocyte Esterase 1+ Urine Glucose (Auto)(UA) NEGATIVE Urine Blood 2+ Urine RBC 0-2 RBC/HPF Urine WBC TooNumerousToCount WBC/HPF Urine Squamous Epithelial Cells MANY Urine Bacteria MANY Urine Trichomonas MODERATE White Blood Count 7.6 10^3/uL 5.3 10^3/uL Red Blood Count 4.45 10^6/uL 4.29 10^6/uL Hemoglobin 11.1 g/dL 10.8 g/dL Hematocrit 35.5 % 34.8 % Mean Corpuscular Volume 79.8 fL 81.1 fL Mean Corpuscular Hemoglobin 24.9 pg 25.2 pg Mean Corpuscular Hemoglobin Concent 31.3 g/dL 31.0 g/dL Red Cell Distribution Width 13.6 % 13.6 % Platelet Count 413 10^3/uL 310 10^3/uL Mean Platelet Volume 9.8 fL 9.6 fL Neutrophils (%) (Auto) 61.3 % 72.8 % Lymphocytes (%) (Auto) 30.7 % 17.9 % Monocytes (%) (Auto) 5.7 % 7.0 % Neutrophils # (Auto) 4.6 10^3/uL 3.9 10^3/uL Lymphocytes # (Auto) 2.32 10^3/uL1 0.95 10^3/uL1 Monocytes # (Auto) 0.4 10^3/uL 0.4 10^3/uL Absolute Immature Granulocyte (auto 0.02 10^3 u/L 0.01 10^3 u/L Absolute Eosinophils (auto) 0.1 10^3/uL 0.1 10^3/uL Immature Granulocytes % 0.30 % 0.20 % Eosinophils % 1.6 % 1.9 % Basophils % 0.4 % 0.4 % Basophils # 0.0 10^3/uL 0.0 10^3/uL Prothrombin Time 10.4 SEC Prothrombin Time INR (Non-Therap) 1.0 Activated Partial Thromboplast Time 22.4 SEC Sodium Level 138 mmol/L 138 mmol/L Potassium Level 3.6 mmol/L 3.1 mmol/L Chloride Level 103.0 mmol/L 101.0 mmol/L Carbon Dioxide Level 26.3 mmol/L 24.7 mmol/L Anion Gap 12.3 15.4 Blood Urea Nitrogen 12 mg/dL 5 mg/dL Creatinine 0.56 mg/dL 0.48 mg/dL Estimated GFR () 146.6 175.1 Est GFR (CKD-EPI)(Non-Afr Samoan) 121.2 144.7 BUN/Creatinine Ratio 21.0 10.0 Glucose Level 111 mg/dL 108 mg/dL Calcium Level 8.8 mg/dL 8.1 mg/dL Total Bilirubin 0.5 mg/dL Aspartate Amino Transf (AST/SGOT) 21 U/L Alanine Aminotransferase (ALT/SGPT) 16 U/L Alkaline Phosphatase 114 U/L Total Protein 7.7 g/dL Albumin 3.5 g/dL Globulin 4.2 Albumin/Globulin Ratio 0.833 Lipase 94 U/L SARS-CoV-2 Antigen (Rapid) NEGATIVE Current Medications Medications (Trade) Dose Ordered Sig/Maude PRN Reason Start Time Stop Time Status Last Admin Ceftriaxone Sodium 1000 mg/ Sodium Chloride 100 ml @ 100 mls/hr Q24HRS 10/03/21 09:30 11/02/21 09:29 10/04/21 08:24 Enoxaparin Sodium (Lovenox) 30 mg Q12H 10/04/21 10:00 11/03/21 09:59 10/04/21 10:52 Famotidine (Pepcid) 20 mg BID 10/03/21 21:00 11/02/21 20:59 10/04/21 08:24 Hydromorphone HCl (Dilaudid) 0.5 mg Q4H PRN PAIN 7 - 10 10/03/21 10:00 11/02/21 09:59 10/04/21 13:12 Levetiracetam (Keppra) 500 mg BID 10/03/21 21:00 11/02/21 20:59 10/04/21 08:24 Lorazepam (Ativan) 1 mg PRN PRN seizure 10/03/21 14:00 11/02/21 13:59 Metronidazole (Flagyl) 500 mg TID 10/04/21 15:00 11/03/21 14:59 10/04/21 14:48 Ondansetron HCl (Zofran) 8 mg Q6H 10/04/21 10:00 11/02/21 09:29 10/04/21 15:59 Promethazine HCl (Phenergan) 12.5 mg Q4H PRN NAUSEA / VOMITING 10/04/21 16:30 11/03/21 16:29 UNV 10/04/21 16:35 Heart: Regular rate, Normal S1, Normal S2 Abdomen: Normal bowel sounds, Soft, Other (improving TTP around umbilicus) Lungs: Clear to auscultation, Normal air movement Assessment & Plan: Assessment A/P 36 yo F with inc. incisional hernia 1. may need to have open incisional hernia repair without mesh HAI MASON MD Oct 04, 2021 17:46
[2021-10-04 20:11] VITALS: BP 164/98
[2021-10-04] MEDS ORDERED: BENADRYL PO PRN (22:00)
[2021-10-04] MEDS ORDERED: FIORICET PO PRN (22:00)
[2021-10-04] MEDS ORDERED: BENADRYL IV PRN (22:30)
[2021-10-04] MEDS: OFIRMEV IV PRN (22:50)
--- NOTE | 2021-10-04 23:15 | DIREP ---
PROCEDURE:CT HEAD OR BRAIN W/O CONTRAST COMPARISON:None. INDICATIONS:headache TECHNIQUE:CT images were created without intravenous contrast. FINDINGS: VENTRICLES:The ventricles are normal in size and configuration. 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 CEREBELLUM:Negative. BRAINSTEM:Negative. BASAL CISTERNS:Negative. HEMORRHAGE:No MASS LESION:No ACUTE INFARCT:No SKULL:Normal. SINUSES:Normal. OTHER:None CONCLUSION:Loyd cisterna magna. No acute visualized abnormality. Dictated by: Brad Berry DO on 10/04/2021 at 11:11 PM
[2021-10-04 23:24] VITALS: BP 156/97
[2021-10-05] MEDS ORDERED: NS 25ML 25 ML IV ONE ×2 (02:17→17:43)
[2021-10-05] MEDS: PHENERGAN IV PRN ×2 (02:24→17:50)
[2021-10-05] MEDS: DILAUDID IV PRN ×4 (03:12→16:40)
[2021-10-05 04:00] VITALS: BP 146/96
[2021-10-05] MEDS: ZOFRAN IV SCH ×3 (04:00→16:00)
[2021-10-05] MEDS: BENADRYL IV PRN ×2 (05:30→11:55)
[2021-10-05] MEDS: OFIRMEV IV PRN (07:21)
[2021-10-05] MEDS: FLAGYL PO SCH ×2 (08:17→15:00)
[2021-10-05] MEDS: PEPCID IV SCH (08:17)
[2021-10-05] MEDS: KEPPRA PO SCH (08:40)
[2021-10-05] MEDS ORDERED: NS 250ML 250 ML ONE (08:43)
--- NOTE | 2021-10-05 08:48 | NUR ---
STATUS PT HAD SOME CONCERNS ABOUT HER HEADACHE THAT SHE HAS HAD SINCE LAST NIGHT, UP INTO THIS MORNING, SHE STATED THAT "THE BENADRYL AND DILAUDID DID HELP A LITTLE BIT, BUT THE NURSE TOLD ME THAT THE DILAUDID IS WHAT IS CAUSING MY HEADACHE, BUT I KNOW IT'S NOT, I KNOW WHAT CAUSES MY HEADACHES." PT HAD CONCERNS ABOUT THE NURSE THAT WAS TAKING CARE OF HER THIS MORNING. PT STATED THAT "SHE WANTS A NEW NURSE, BECAUSE THE NURSE SHE HAD THIS MORNING THREW HER PURSE THAT HAD EXPENSIVE MAKEUP PALLETS, AND PERFUME IN GLASS BOTTLES IN THAT PURSE, AND THAT SHE DIDN'T RESPECT IT BEING THROWN, AND THAT SHE'S BEEN ASKING FOR A SHOWER." THIS NURSE EXPLAINED TO THE PT THAT DILAUDID CAN CAUSE HEADACHES, WITH HOW FREQUENTLY SHE IS REQUIRING THE MEDICATION, AND THAT I APOLOGIZE FOR ALL OF HER CONCERNS, AND THAT I WILL DO MY BEST TO SEE WHAT I CAN DO TO MAKE HER STAY BETTER FOR HER, AND THAT WE CAN GET HER INTO THE SHOWER, AND TO CALL ME INTO HER ROOM WITH ANYMORE CONCERNS.
[2021-10-05 08:49] VITALS: BP 135/79
[2021-10-05] MEDS: ROCEPHIN 1,000 MG in NS 100ML 100 ML IV SCH (10:20)
--- NOTE | 2021-10-05 10:21 | PRM.PN ---
Subjective Subjective Date: Oct 05, 2021 Time: 09:00 Subjective Abdominal pain and nausea are improved on dilaudid, patient is asking to eat VTE VTE Risk Total Score: 1 VTE Risk Score VTE Risk: Score 0-1 = Low Risk (Aggressive mobilization; early ambulation; no VTE prophylaxis required) Score 2: Moderate Risk (Intermittent/Pneumatic Compression Device OR Lovenox/Heparin/Coumadin) Score 3-4: High Risk (Intermittent/Pneumatic Compression Device AND Lovenox/Heparin/Coumadin) Score > or =5: Highest Risk (Intermittent/Pneumatic Compression Device AND Lovenox/Heparin/Coumadin) Review of Systems Constitutional: Malaise; No: Fever, Chills, Sweats Gastrointestinal: Nausea, Vomiting, Abdominal Pain Genitourinary: Dysuria Allergies: Coded Allergies: Iodinated Contrast Media (Verified Allergy, Severe, Anaphylaxis Shock, 10/03/21) "MY THROAT CLOSED" ketorolac (Verified Allergy, Severe, Shortness of Breath, 10/03/21) HIVES metoclopramide (Verified Allergy, Severe, Shortness of Breath, 10/03/21) HIVES morphine (Verified Allergy, Unknown, Redness of skin, 10/03/21) Objective Vitals and I/O Vital Sign - Last 24 Hours 10/05/21 10/05/21 08:49 08:49 Temp 98.3 Pulse 97 Resp 16 B/P (MAP) 135/79 (97) Pulse Ox 90 O2 Delivery Room Air General: Alert, Oriented X3 HEENT: Atraumatic, PERRLA Lungs: Clear to auscultation, Normal air movement Heart: Regular rate, Normal S1, Normal S2 Abdomen: Normal bowel sounds, Soft, Other (only mild TTP near umbilicus) Extremities: No clubbing, No cyanosis Neuro: Normal speech, Normal tone Psych/Mental Status: Mental status NL, Mood NL All Results(Lab/Rad) Laboratory Tests Test 10/04/21 06:40 White Blood Count 5.3 10^3/uL Red Blood Count 4.29 10^6/uL Hemoglobin 10.8 g/dL Hematocrit 34.8 % Mean Corpuscular Volume 81.1 fL Mean Corpuscular Hemoglobin 25.2 pg Mean Corpuscular Hemoglobin Concent 31.0 g/dL Red Cell Distribution Width 13.6 % Platelet Count 310 10^3/uL Mean Platelet Volume 9.6 fL Neutrophils (%) (Auto) 72.8 % Lymphocytes (%) (Auto) 17.9 % Monocytes (%) (Auto) 7.0 % Neutrophils # (Auto) 3.9 10^3/uL Lymphocytes # (Auto) 0.95 10^3/uL1 Monocytes # (Auto) 0.4 10^3/uL Absolute Immature Granulocyte (auto 0.01 10^3 u/L Absolute Eosinophils (auto) 0.1 10^3/uL Immature Granulocytes % 0.20 % Eosinophils % 1.9 % Basophils % 0.4 % Basophils # 0.0 10^3/uL Sodium Level 138 mmol/L Potassium Level 3.1 mmol/L Chloride Level 101.0 mmol/L Carbon Dioxide Level 24.7 mmol/L Glucose Level 108 mg/dL Blood Urea Nitrogen 5 mg/dL Creatinine 0.48 mg/dL Calcium Level 8.1 mg/dL Anion Gap 15.4 Estimated GFR () 175.1 Est GFR (CKD-EPI)(Non-Afr Lithuanian) 144.7 BUN/Creatinine Ratio 10.0 Current Medications Medications (Trade) Dose Ordered Sig/Maude Route PRN Reason Start Time Stop Time Status Last Admin Dose Admin Sodium Chloride 1,000 ml @ 1,000 mls/hr Q1H STAT IV 10/03/21 02:45 10/03/21 03:44 DC 10/03/21 03:12 Ondansetron HCl (Zofran) 4 mg STAT STAT IV 10/03/21 02:45 10/03/21 02:48 DC 10/03/21 03:12 Sodium Chloride 1,000 ml @ ud STK-MED ONCE .ROUTE 10/03/21 03:06 10/03/21 03:06 DC Ondansetron HCl (Zofran) 4 mg STK-MED ONCE .ROUTE 10/03/21 03:06 10/03/21 03:07 DC Ceftriaxone Sodium 1000 mg/ Sodium Chloride 100 ml @ 100 mls/hr STAT STAT IV 10/03/21 06:17 10/03/21 07:16 DC 10/03/21 06:50 Morphine Sulfate (Morphine Sulfate) 4 mg STAT STAT IV 10/03/21 06:17 10/03/21 06:21 DC 10/03/21 06:50 Sodium Chloride 100 ml @ ud STK-MED ONCE IV 10/03/21 06:38 10/03/21 06:38 DC Ceftriaxone Sodium (Rocephin) 1,000 mg STK-MED ONCE .ROUTE 10/03/21 06:38 10/03/21 06:39 DC Morphine Sulfate (Morphine Sulfate) 4 mg STK-MED ONCE .ROUTE 10/03/21 06:39 10/03/21 06:39 DC Diphenhydramine HCl (Benadryl) 25 mg STAT STAT IV 10/03/21 07:01 10/03/21 07:02 DC 10/03/21 07:06 Diphenhydramine HCl (Benadryl) 50 mg STK-MED ONCE .ROUTE 10/03/21 07:02 10/03/21 07:02 DC Ondansetron HCl (Zofran) 4 mg Q4H PRN IV NAUSEA / VOMITING 10/03/21 09:30 10/04/21 09:44 DC 10/04/21 08:43 Famotidine (Pepcid) 20 mg BID IV 10/03/21 21:00 11/02/21 20:59 10/04/21 08:24 Ceftriaxone Sodium 1000 mg/ Sodium Chloride 100 ml @ 100 mls/hr Q24HRS IV 10/03/21 09:30 11/02/21 09:29 10/04/21 08:24 Hydromorphone HCl (Dilaudid) 0.5 mg Q4H PRN IV PAIN 7 - 10 10/03/21 10:00 11/02/21 09:59 10/04/21 08:44 Levetiracetam (Keppra) 500 mg Q8 IV 10/03/21 14:00 10/03/21 14:14 DC Lorazepam (Ativan) 1 mg PRN PRN IV seizure 10/03/21 14:00 11/02/21 13:59 Promethazine HCl (Phenergan) 25 mg STK-MED ONCE .ROUTE 10/03/21 15:41 10/03/21 15:41 DC Sodium Chloride 25 ml @ ud STK-MED ONCE IV 10/03/21 15:41 10/03/21 15:42 DC Promethazine HCl (Phenergan) 12.5 mg OT ONCE IV 10/03/21 16:00 10/03/21 20:47 DC 10/03/21 15:47 Levetiracetam (Keppra) 500 mg BID PO 10/03/21 21:00 11/02/21 20:59 10/04/21 08:24 Metronidazole 100 ml @ 100 mls/hr Q8HR IV 10/03/21 22:00 11/02/21 21:59 10/04/21 05:07 Levetiracetam (Levetiracetam) 250 mg STK-MED ONCE PO 10/03/21 20:18 10/03/21 20:18 DC Metronidazole 100 ml @ ud STK-MED ONCE IV 10/03/21 21:09 10/03/21 21:09 DC Metronidazole 100 ml @ ud STK-MED ONCE IV 10/04/21 04:47 10/04/21 04:47 DC Sodium Chloride 250 ml @ ud STK-MED ONCE .ROUTE 10/04/21 08:35 10/04/21 08:35 DC Ondansetron HCl (Zofran) 8 mg Q6H IV 10/04/21 10:00 11/02/21 09:29 UNV Enoxaparin Sodium (Lovenox) 30 mg Q12H SQ 10/04/21 10:00 11/03/21 09:59 UNV Course Sepsis Screening Results: Posi: NEGATIVE Sepsis Qualifier/Stage: NO DEFINITE RISK Duration or Total Time Spent w: 60 min Vitals & review Data Vital Sign - Last 24 Hours 10/04/21 10/04/21 08:39 09:17 Temp 98.1 Pulse 99 Resp 17 B/P (MAP) 133/81 (98) Pulse Ox 96 O2 Delivery Room Air Laboratory Tests Test 10/03/21 03:32 10/03/21 05:25 10/03/21 06:14 10/04/21 06:40 Urine Collection Type RANDOM Urine Color YELLOW Urine Appearance TURBID Urine Bilirubin NEGATIVE Urine Ketones NEGATIVE Urine Specific [place] >=1.030 Urine pH 5.5 Urine Protein 1+ Urine Urobilinogen 1.0 E.U./dL Urine Nitrate NEGATIVE Urine Leukocyte Esterase 1+ Urine Glucose (Auto)(UA) NEGATIVE Urine Blood 2+ Urine RBC 0-2 RBC/HPF Urine WBC TooNumerousToCount WBC/HPF Urine Squamous Epithelial Cells MANY Urine Bacteria MANY Urine Trichomonas MODERATE White Blood Count 7.6 10^3/uL 5.3 10^3/uL Red Blood Count 4.45 10^6/uL 4.29 10^6/uL Hemoglobin 11.1 g/dL 10.8 g/dL Hematocrit 35.5 % 34.8 % Mean Corpuscular Volume 79.8 fL 81.1 fL Mean Corpuscular Hemoglobin 24.9 pg 25.2 pg Mean Corpuscular Hemoglobin Concent 31.3 g/dL 31.0 g/dL Red Cell Distribution Width 13.6 % 13.6 % Platelet Count 413 10^3/uL 310 10^3/uL Mean Platelet Volume 9.8 fL 9.6 fL Neutrophils (%) (Auto) 61.3 % 72.8 % Lymphocytes (%) (Auto) 30.7 % 17.9 % Monocytes (%) (Auto) 5.7 % 7.0 % Neutrophils # (Auto) 4.6 10^3/uL 3.9 10^3/uL Lymphocytes # (Auto) 2.32 10^3/uL1 0.95 10^3/uL1 Monocytes # (Auto) 0.4 10^3/uL 0.4 10^3/uL Absolute Immature Granulocyte (auto 0.02 10^3 u/L 0.01 10^3 u/L Absolute Eosinophils (auto) 0.1 10^3/uL 0.1 10^3/uL Immature Granulocytes % 0.30 % 0.20 % Eosinophils % 1.6 % 1.9 % Basophils % 0.4 % 0.4 % Basophils # 0.0 10^3/uL 0.0 10^3/uL Prothrombin Time 10.4 SEC Prothrombin Time INR (Non-Therap) 1.0 Activated Partial Thromboplast Time 22.4 SEC Sodium Level 138 mmol/L 138 mmol/L Potassium Level 3.6 mmol/L 3.1 mmol/L Chloride Level 103.0 mmol/L 101.0 mmol/L Carbon Dioxide Level 26.3 mmol/L 24.7 mmol/L Anion Gap 12.3 15.4 Blood Urea Nitrogen 12 mg/dL 5 mg/dL Creatinine 0.56 mg/dL 0.48 mg/dL Estimated GFR () 146.6 175.1 Est GFR (CKD-EPI)(Non-Afr Lithuanian) 121.2 144.7 BUN/Creatinine Ratio 21.0 10.0 Glucose Level 111 mg/dL 108 mg/dL Calcium Level 8.8 mg/dL 8.1 mg/dL Total Bilirubin 0.5 mg/dL Aspartate Amino Transf (AST/SGOT) 21 U/L Alanine Aminotransferase (ALT/SGPT) 16 U/L Alkaline Phosphatase 114 U/L Total Protein 7.7 g/dL Albumin 3.5 g/dL Globulin 4.2 Albumin/Globulin Ratio 0.833 Lipase 94 U/L SARS-CoV-2 Antigen (Rapid) NEGATIVE Current Medications Medications (Trade) Dose Ordered Sig/Maude PRN Reason Start Time Stop Time Status Last Admin Ceftriaxone Sodium 1000 mg/ Sodium Chloride 100 ml @ 100 mls/hr Q24HRS 10/03/21 09:30 11/02/21 09:29 10/04/21 08:24 Enoxaparin Sodium (Lovenox) 30 mg Q12H 10/04/21 10:00 11/03/21 09:59 UNV Famotidine (Pepcid) 20 mg BID 10/03/21 21:00 11/02/21 20:59 10/04/21 08:24 Hydromorphone HCl (Dilaudid) 0.5 mg Q4H PRN PAIN 7 - 10 10/03/21 10:00 11/02/21 09:59 10/04/21 08:44 Levetiracetam (Keppra) 500 mg BID 10/03/21 21:00 11/02/21 20:59 10/04/21 08:24 Lorazepam (Ativan) 1 mg PRN PRN seizure 10/03/21 14:00 11/02/21 13:59 Metronidazole 100 ml @ 100 mls/hr Q8HR 10/03/21 22:00 11/02/21 21:59 10/04/21 05:07 Ondansetron HCl (Zofran) 8 mg Q6H 10/04/21 10:00 11/02/21 09:29 UNV LEVEL 1 SEPSIS INFECTION CRITE: ABX Therapy, Abdominal Pain LEVEL 2-SIRS (LIST ALL THAT AP: None/Not assessed Cardiovascular Evidence: Not Assessed or None Hematologic Evidence: None/Not assessed Hepatic Evidence: None/Not assessed Metabolic Evidence: None/Not assessed Neurological Evidence: None/Not assessed Respiratory Evidence: None/Not assessed Renal Evidence: None/Not assessed O2 Sat by Pulse Oximetry: 90 Assessment/Plan Assessment/Plan Problems: (1) Morbid obesity Status: Chronic Assessment & Plan: Chronic, needs to lose weight but in the setting of acute illness this is challenging will drapery counselor on weight loss before discharge ICD Code: E66.01 - Morbid (severe) obesity due to excess calories SNOMED: 214782801 (2) UTI (urinary tract infection) Status: Acute Assessment & Plan: Improving on Rocephin, Culture showed only a wide variety of gram-positive organisms In addition to initial GNR's ICD Code: N39.0 - Urinary tract infection, site not specified SNOMED: 30755536 (3) Incarcerated umbilical hernia Status: Acute Assessment & Plan: Pending surgery, possibly tomorrow morning ICD Code: K42.0 - Umbilical hernia with obstruction, without gangrene SNOMED: 340325729 (4) Seizure disorder Status: Chronic Assessment & Plan: She is refusing her Keppra as she reports that it makes her headaches worse, working on treating her migraines with Fioricet ICD Code: G40.909 - Epilepsy, unspecified, not intractable, without status epilepticus SNOMED: 622179248 Problem Qualifiers (1) UTI (urinary tract infection): Urinary tract infection type: site unspecified Hematuria presence: with hematuria Qualified Codes: N39.0 - Urinary tract infection, site not specified ; R31.9 - Hematuria, unspecified KYLEE NEVAREZ MD Oct 05, 2021 10:21
[2021-10-05] MEDS: LOVENOX SQ SCH (11:00)
--- NOTE | 2021-10-05 15:38 | PRM.PN ---
Progress Note Subjective Physician Notes: Pt татьяна po, pain improved Objective Review IO, Exams,& Results Problems Acute/Active Problems: (1) Incarcerated umbilical hernia (2) UTI (urinary tract infection) Vital Signs Date Time Temp Pulse Resp B/P (MAP) Pulse Ox O2 Delivery O2 Flow Rate FiO2 10/05/21 08:49 98.3 97 16 135/79 (97) 90 10/05/21 08:49 Room Air Laboratory Tests Test 10/04/21 06:40 White Blood Count 5.3 10^3/uL Red Blood Count 4.29 10^6/uL Hemoglobin 10.8 g/dL Hematocrit 34.8 % Mean Corpuscular Volume 81.1 fL Mean Corpuscular Hemoglobin 25.2 pg Mean Corpuscular Hemoglobin Concent 31.0 g/dL Red Cell Distribution Width 13.6 % Platelet Count 310 10^3/uL Mean Platelet Volume 9.6 fL Neutrophils (%) (Auto) 72.8 % Lymphocytes (%) (Auto) 17.9 % Monocytes (%) (Auto) 7.0 % Neutrophils # (Auto) 3.9 10^3/uL Lymphocytes # (Auto) 0.95 10^3/uL1 Monocytes # (Auto) 0.4 10^3/uL Absolute Immature Granulocyte (auto 0.01 10^3 u/L Absolute Eosinophils (auto) 0.1 10^3/uL Immature Granulocytes % 0.20 % Eosinophils % 1.9 % Basophils % 0.4 % Basophils # 0.0 10^3/uL Sodium Level 138 mmol/L Potassium Level 3.1 mmol/L Chloride Level 101.0 mmol/L Carbon Dioxide Level 24.7 mmol/L Glucose Level 108 mg/dL Blood Urea Nitrogen 5 mg/dL Creatinine 0.48 mg/dL Calcium Level 8.1 mg/dL Anion Gap 15.4 Estimated GFR () 175.1 Est GFR (CKD-EPI)(Non-Afr Irish) 144.7 BUN/Creatinine Ratio 10.0 Current Medications Medications (Trade) Dose Ordered Sig/Maude PRN Reason Start Time Stop Time Status Last Admin Acetaminophen (Ofirmev) 1,000 mg Q6 PRN HEADACHE 10/04/21 22:30 11/03/21 22:29 10/05/21 07:21 Acetaminophen/ Butalbital/ Caffeine (Fioricet) 2 each Q4HR PRN PAIN 7 - 10 10/04/21 22:00 11/03/21 21:59 Ceftriaxone Sodium 1000 mg/ Sodium Chloride 100 ml @ 100 mls/hr Q24HRS 10/03/21 09:30 11/02/21 09:29 10/05/21 10:20 Diphenhydramine HCl (Benadryl) 25 mg Q6 PRN PAIN 7 - 10 10/05/21 04:50 11/03/21 22:29 10/05/21 05:30 Diphenhydramine HCl (Benadryl) 25 mg Q6HR PRN ITCHING 10/04/21 22:00 11/03/21 21:59 Enoxaparin Sodium (Lovenox) 30 mg Q12H 10/04/21 10:00 11/03/21 09:59 10/05/21 11:00 Famotidine (Pepcid) 20 mg BID 10/03/21 21:00 11/02/21 20:59 10/05/21 08:17 Hydromorphone HCl (Dilaudid) 0.5 mg Q4H PRN PAIN 7 - 10 10/03/21 10:00 11/02/21 09:59 10/05/21 08:18 Levetiracetam (Keppra) 500 mg BID 10/03/21 21:00 11/02/21 20:59 10/04/21 08:24 Lorazepam (Ativan) 1 mg PRN PRN seizure 10/03/21 14:00 11/02/21 13:59 Metronidazole (Flagyl) 500 mg TID 10/04/21 15:00 11/03/21 14:59 10/05/21 08:17 Ondansetron HCl (Zofran) 8 mg Q6H 10/04/21 10:00 11/02/21 09:29 10/05/21 11:00 Promethazine HCl (Phenergan) 12.5 mg Q4H PRN NAUSEA / VOMITING 10/04/21 16:30 11/03/21 16:29 10/05/21 02:24 Heart: Regular rate, Normal S1, Normal S2 Abdomen: Normal bowel sounds, Soft, Other (min TTP around umbilicus) Lungs: Clear to auscultation, Normal air movement Assessment & Plan: Assessment 36 yo F with inc incisional hernia plus UTI and trig infection 1. best option is a lap procedure after a min of 1 wk of abx treatment 2. recommend discharge and f/u for outpt procedure HAI MASON MD Oct 05, 2021 15:38
[2021-10-05 17:00] VITALS: BP 133/97
--- NOTE | 2021-10-05 19:07 | PRM.DC ---
Discharge Summary Date of Discharge: Oct 05, 2021 Time of Request to Discharge: 19:06 Reason for Visit: Abdominal pain Hospital Course Ms. Mari is a 36-year-old female who presented with abdominal pain which was found to be secondary to an fat incarcerated umbilical hernia. After evaluation by surgery, the patient was also found to have a UTI which precluded the acute possibility of mesh placement given the risk of infection. After discussion with surgery, as well as noting the patient's renewed ability to eat, she is discharged home with antiemetics, the remainder of a 5-day course of antibiotics for urinary tract infection and Fioricet for her migraine headache. She will follow up in clinic with Dr. Kyle to schedule surgery, or she can do so in her [employer] palms used and if that is more convenient for her. General: Alert, Oriented X3, Cooperative, No acute distress HEENT: Atraumatic, PERRLA, EOMI, Mucous membr. moist/pink Neck: Supple, No JVD, No thyromegaly Lungs: Clear to auscultation, Normal air movement Heart: Regular rate, Normal S1, Normal S2 Abdomen: Normal bowel sounds, Soft Extremities: No cyanosis, No edema Neuro: Normal speech Psych/Mental Status: Mental status NL, Mood NL Sepsis Evaluation @ Discharge Vital Sign - Last 24 Hours 10/04/21 10/04/21 08:39 09:17 Temp 98.1 Pulse 99 Resp 17 B/P (MAP) 133/81 (98) Pulse Ox 96 O2 Delivery Room Air Laboratory Tests Test 10/03/21 03:32 10/03/21 05:25 10/03/21 06:14 10/04/21 06:40 Urine Collection Type RANDOM Urine Color YELLOW Urine Appearance TURBID Urine Bilirubin NEGATIVE Urine Ketones NEGATIVE Urine Specific [place] >=1.030 Urine pH 5.5 Urine Protein 1+ Urine Urobilinogen 1.0 E.U./dL Urine Nitrate NEGATIVE Urine Leukocyte Esterase 1+ Urine Glucose (Auto)(UA) NEGATIVE Urine Blood 2+ Urine RBC 0-2 RBC/HPF Urine WBC TooNumerousToCount WBC/HPF Urine Squamous Epithelial Cells MANY Urine Bacteria MANY Urine Trichomonas MODERATE White Blood Count 7.6 10^3/uL 5.3 10^3/uL Red Blood Count 4.45 10^6/uL 4.29 10^6/uL Hemoglobin 11.1 g/dL 10.8 g/dL Hematocrit 35.5 % 34.8 % Mean Corpuscular Volume 79.8 fL 81.1 fL Mean Corpuscular Hemoglobin 24.9 pg 25.2 pg Mean Corpuscular Hemoglobin Concent 31.3 g/dL 31.0 g/dL Red Cell Distribution Width 13.6 % 13.6 % Platelet Count 413 10^3/uL 310 10^3/uL Mean Platelet Volume 9.8 fL 9.6 fL Neutrophils (%) (Auto) 61.3 % 72.8 % Lymphocytes (%) (Auto) 30.7 % 17.9 % Monocytes (%) (Auto) 5.7 % 7.0 % Neutrophils # (Auto) 4.6 10^3/uL 3.9 10^3/uL Lymphocytes # (Auto) 2.32 10^3/uL1 0.95 10^3/uL1 Monocytes # (Auto) 0.4 10^3/uL 0.4 10^3/uL Absolute Immature Granulocyte (auto 0.02 10^3 u/L 0.01 10^3 u/L Absolute Eosinophils (auto) 0.1 10^3/uL 0.1 10^3/uL Immature Granulocytes % 0.30 % 0.20 % Eosinophils % 1.6 % 1.9 % Basophils % 0.4 % 0.4 % Basophils # 0.0 10^3/uL 0.0 10^3/uL Prothrombin Time 10.4 SEC Prothrombin Time INR (Non-Therap) 1.0 Activated Partial Thromboplast Time 22.4 SEC Sodium Level 138 mmol/L 138 mmol/L Potassium Level 3.6 mmol/L 3.1 mmol/L Chloride Level 103.0 mmol/L 101.0 mmol/L Carbon Dioxide Level 26.3 mmol/L 24.7 mmol/L Anion Gap 12.3 15.4 Blood Urea Nitrogen 12 mg/dL 5 mg/dL Creatinine 0.56 mg/dL 0.48 mg/dL Estimated GFR () 146.6 175.1 Est GFR (CKD-EPI)(Non-Afr Citizen Of [place]) 121.2 144.7 BUN/Creatinine Ratio 21.0 10.0 Glucose Level 111 mg/dL 108 mg/dL Calcium Level 8.8 mg/dL 8.1 mg/dL Total Bilirubin 0.5 mg/dL Aspartate Amino Transf (AST/SGOT) 21 U/L Alanine Aminotransferase (ALT/SGPT) 16 U/L Alkaline Phosphatase 114 U/L Total Protein 7.7 g/dL Albumin 3.5 g/dL Globulin 4.2 Albumin/Globulin Ratio 0.833 Lipase 94 U/L SARS-CoV-2 Antigen (Rapid) NEGATIVE Current Medications Medications (Trade) Dose Ordered Sig/Maude PRN Reason Start Time Stop Time Status Last Admin Ceftriaxone Sodium 1000 mg/ Sodium Chloride 100 ml @ 100 mls/hr Q24HRS 10/03/21 09:30 11/02/21 09:29 10/04/21 08:24 Enoxaparin Sodium (Lovenox) 30 mg Q12H 10/04/21 10:00 11/03/21 09:59 UNV Famotidine (Pepcid) 20 mg BID 10/03/21 21:00 11/02/21 20:59 10/04/21 08:24 Hydromorphone HCl (Dilaudid) 0.5 mg Q4H PRN PAIN 7 - 10 10/03/21 10:00 11/02/21 09:59 10/04/21 08:44 Levetiracetam (Keppra) 500 mg BID 10/03/21 21:00 11/02/21 20:59 10/04/21 08:24 Lorazepam (Ativan) 1 mg PRN PRN seizure 10/03/21 14:00 11/02/21 13:59 Metronidazole 100 ml @ 100 mls/hr Q8HR 10/03/21 22:00 11/02/21 21:59 10/04/21 05:07 Ondansetron HCl (Zofran) 8 mg Q6H 10/04/21 10:00 11/02/21 09:29 UNV Course Sepsis Screening Results: Posi: NEGATIVE Sepsis Qualifier/Stage: NO DEFINITE RISK Duration or Total Time Spent w: 60 min Vitals & review Data Vital Sign - Last 24 Hours 10/04/21 10/04/21 08:39 09:17 Temp 98.1 Pulse 99 Resp 17 B/P (MAP) 133/81 (98) Pulse Ox 96 O2 Delivery Room Air Laboratory Tests Test 10/03/21 03:32 10/03/21 05:25 10/03/21 06:14 10/04/21 06:40 Urine Collection Type RANDOM Urine Color YELLOW Urine Appearance TURBID Urine Bilirubin NEGATIVE Urine Ketones NEGATIVE Urine Specific [place] >=1.030 Urine pH 5.5 Urine Protein 1+ Urine Urobilinogen 1.0 E.U./dL Urine Nitrate NEGATIVE Urine Leukocyte Esterase 1+ Urine Glucose (Auto)(UA) NEGATIVE Urine Blood 2+ Urine RBC 0-2 RBC/HPF Urine WBC TooNumerousToCount WBC/HPF Urine Squamous Epithelial Cells MANY Urine Bacteria MANY Urine Trichomonas MODERATE White Blood Count 7.6 10^3/uL 5.3 10^3/uL Red Blood Count 4.45 10^6/uL 4.29 10^6/uL Hemoglobin 11.1 g/dL 10.8 g/dL Hematocrit 35.5 % 34.8 % Mean Corpuscular Volume 79.8 fL 81.1 fL Mean Corpuscular Hemoglobin 24.9 pg 25.2 pg Mean Corpuscular Hemoglobin Concent 31.3 g/dL 31.0 g/dL Red Cell Distribution Width 13.6 % 13.6 % Platelet Count 413 10^3/uL 310 10^3/uL Mean Platelet Volume 9.8 fL 9.6 fL Neutrophils (%) (Auto) 61.3 % 72.8 % Lymphocytes (%) (Auto) 30.7 % 17.9 % Monocytes (%) (Auto) 5.7 % 7.0 % Neutrophils # (Auto) 4.6 10^3/uL 3.9 10^3/uL Lymphocytes # (Auto) 2.32 10^3/uL1 0.95 10^3/uL1 Monocytes # (Auto) 0.4 10^3/uL 0.4 10^3/uL Absolute Immature Granulocyte (auto 0.02 10^3 u/L 0.01 10^3 u/L Absolute Eosinophils (auto) 0.1 10^3/uL 0.1 10^3/uL Immature Granulocytes % 0.30 % 0.20 % Eosinophils % 1.6 % 1.9 % Basophils % 0.4 % 0.4 % Basophils # 0.0 10^3/uL 0.0 10^3/uL Prothrombin Time 10.4 SEC Prothrombin Time INR (Non-Therap) 1.0 Activated Partial Thromboplast Time 22.4 SEC Sodium Level 138 mmol/L 138 mmol/L Potassium Level 3.6 mmol/L 3.1 mmol/L Chloride Level 103.0 mmol/L 101.0 mmol/L Carbon Dioxide Level 26.3 mmol/L 24.7 mmol/L Anion Gap 12.3 15.4 Blood Urea Nitrogen 12 mg/dL 5 mg/dL Creatinine 0.56 mg/dL 0.48 mg/dL Estimated GFR () 146.6 175.1 Est GFR (CKD-EPI)(Non-Afr Citizen Of [place]) 121.2 144.7 BUN/Creatinine Ratio 21.0 10.0 Glucose Level 111 mg/dL 108 mg/dL Calcium Level 8.8 mg/dL 8.1 mg/dL Total Bilirubin 0.5 mg/dL Aspartate Amino Transf (AST/SGOT) 21 U/L Alanine Aminotransferase (ALT/SGPT) 16 U/L Alkaline Phosphatase 114 U/L Total Protein 7.7 g/dL Albumin 3.5 g/dL Globulin 4.2 Albumin/Globulin Ratio 0.833 Lipase 94 U/L SARS-CoV-2 Antigen (Rapid) NEGATIVE Current Medications Medications (Trade) Dose Ordered Sig/Maude PRN Reason Start Time Stop Time Status Last Admin Ceftriaxone Sodium 1000 mg/ Sodium Chloride 100 ml @ 100 mls/hr Q24HRS 10/03/21 09:30 11/02/21 09:29 10/04/21 08:24 Enoxaparin Sodium (Lovenox) 30 mg Q12H 10/04/21 10:00 11/03/21 09:59 UNV Famotidine (Pepcid) 20 mg BID 10/03/21 21:00 11/02/21 20:59 10/04/21 08:24 Hydromorphone HCl (Dilaudid) 0.5 mg Q4H PRN PAIN 7 - 10 10/03/21 10:00 11/02/21 09:59 10/04/21 08:44 Levetiracetam (Keppra) 500 mg BID 10/03/21 21:00 11/02/21 20:59 10/04/21 08:24 Lorazepam (Ativan) 1 mg PRN PRN seizure 10/03/21 14:00 11/02/21 13:59 Metronidazole 100 ml @ 100 mls/hr Q8HR 10/03/21 22:00 11/02/21 21:59 10/04/21 05:07 Ondansetron HCl (Zofran) 8 mg Q6H 12/19/21 10:00 11/02/21 09:29 UNV LEVEL 1 SEPSIS INFECTION CRITE: ABX Therapy, Abdominal Pain LEVEL 2-SIRS (LIST ALL THAT AP: None/Not assessed Cardiovascular Evidence: Not Assessed or None Hematologic Evidence: None/Not assessed Hepatic Evidence: None/Not assessed Metabolic Evidence: None/Not assessed Neurological Evidence: None/Not assessed Respiratory Evidence: None/Not assessed Renal Evidence: None/Not assessed O2 Sat by Pulse Oximetry: 97 KYLEE NEVAREZ MD Oct 05, 2021 19:07
[2021-10-05] MEDS ORDERED: CIPR500T86 PO (19:09)
[2021-10-05] MEDS ORDERED: LEVE500T54 PO (19:09)
[2021-10-05] MEDS ORDERED: [UNRECOGNIZED DRUG - CODE] PO (19:09)
[2021-10-05] MEDS ORDERED: ONDA8TAB16 PO (19:09)
[2021-10-05 19:50] VITALS: BP 133/97
--- NOTE | 2021-10-05 20:00 | NUR ---
DISCHARGE EDUCATION SESSION HELD WITH PT IN REGARDS TO DISCHARGE INSTRUCTIONS AND NEW MEDICATIONS PRESCRIBED. GIVEN DISCHARGE PAPERWORK AND VERBALIZED UNDERSTANDING. LEFT AMBULATORY ACCOMPANIED BY THIS NURSE, NO APPARENT ACUTE DISTRESS AT THIS TIME, DENIES PAIN, LEFT IN PERSONAL VEHICLE WITH FAMILY MEMBER THROUGH ER DOORS. RELINQUISHED CARE AT 1950.
== END 2021-10-05 19:50 | disposition home or self-care (01) | DRG 254 ==
LOC: ER 01:06 → OBSVTOIN 06:14 → INTOOBSV 06:14 → UNDOADMOB 06:14 → MS 06:14
PROVIDERS: ADMIT Surgery; ATTEND Family Medicine
DX: K42.0 Umbilical hernia with obstruction, without gangrene (principal); E66.01 Morbid (severe) obesity due to excess calories; M32.9 Systemic lupus erythematosus, unspecified; N39.0 Urinary tract infection, site not specified; G40.909 Epilepsy, unspecified, not intractable, without status epilepticus; F41.9 Anxiety disorder, unspecified; G43.909 Migraine, unspecified, not intractable, without status migrainosus; Z90.710 Acquired absence of both cervix and uterus; Z90.49 Acquired absence of other specified parts of digestive tract; Z91.041 Radiographic dye allergy status; Z88.8 Allergy status to other drugs, medicaments and biological substances; Z71.3 Dietary counseling and surveillance; Z68.41 Body mass index [BMI] 40.0-44.9, adult
CPT/HCPCS: 36415; 70450; 74176; 80048; 80053; 81001; 83690; 85025; 85610; 85730; 87086; 87426; 99285; G0378; J0131; J0696; J1170; J1200; J1650; J2270; J2405; J2550; J3490; J7030; J7050; Q0163; J1953